=== PATIENT | male | born 1960 | race Caucasian/White ===

== ENCOUNTER 2018-09-29 20:20 | Emergency (ER) | payer BC ==
--- NOTE | 2018-09-29 21:45 | ED ---
Lower Extremity - HPI Summary HPI Summary: Pt is a 58 year old M presenting to the ED with a chief complaint of steady pain in his R calf onset 3 weeks ago without injury. Pt states there is now swelling onset tonight. Pt denies fever. Pt recently travelled to the [place] about 4 weeks ago. - History of Current Complaint Chief Complaint: EDExtremityLower Stated Complaint: RT LEG SWOLLEN AND PAIN Time Seen by Provider: 09/29/18 21:31 Hx Obtained From: Patient Mechanism Of Injury: Unknown Onset of Pain: Days - 3 weeks ago Onset/Duration: Still Present Severity Initially: Mild Severity Currently: Mild Pain Intensity: 3 Pain Scale Used: 0-10 Numeric Timing: Constant, Lasting Weeks Location: Is Discrete @ - R calf Character Of Pain: Sharp Associated Signs And Symptoms: Positive: Swelling, Redness, Other - calf pain Aggravating Factor(s): Standing, Weight Bearing Alleviating Factor(s): Rest Able to Bear Weight: Yes - Allergies/Home Medications Allergies/Adverse Reactions: Allergies Allergy/AdvReac Type Severity Reaction Status Date / Time MS Azithromycin Allergy Rash Verified 09/29/18 20:29 [Azithromycin] PMH/Surg Hx/FS Hx/Imm Hx Previously Healthy: No Endocrine/Hematology History: Reports: Hx Diabetes - DIET CONTROLLED- HX OF PRIOR TO WEIGHT LOSS Cardiovascular History: Reports: Hx Hypertension - WELL CONTROLLED Denies: Other Cardiovascular Problems/Disorders GI History: Reports: Hx Gastroesophageal Reflux Disease, Hx Hiatal Hernia Musculoskeletal History: Reports: Hx Arthritis - NECK, HANDS AND KNEES Sensory History: Reports: Hx Contacts or Glasses - GLASSES Denies: Hx Hearing Aid Opthamlomology History: Reports: Hx Contacts or Glasses - GLASSES Neurological History: Reports: 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 MENINGIOMA RESECTION 2001 [facility]. bilateral arthroscopy knees. R ankle SCOPING. Appendectomy 2007. tonsillectomy age 23 Hx Anesthesia Reactions: No Infectious Disease History: No Infectious Disease History: Reports: Traveled Outside the [place] in Last 30 Days - [facility] [place] Denies: History Other Infectious Disease - Family History Known Family History: Negative: Renal Disease - Social History Alcohol Use: Rare Alcohol Amount: 1x/month Substance Use Type: Reports: None Smoking Status (MU): Never Smoked Tobacco Review of Systems Negative: Fever Positive: Myalgia - R calf, Edema - R calf Positive: Other - redness R calf All Other Systems Reviewed And Are Negative: Yes Physical Exam - Summary Physical Exam Summary: VITAL SIGNS: Reviewed. GENERAL: Patient is a well-developed and nourished male who is lying comfortable in the stretcher. Patient is not in any acute respiratory distress. HEAD AND FACE: No signs of trauma. No ecchymosis, hematomas or skull depressions. No sinus tenderness. EYES: PERRLA, EOMI x 2, No injected conjunctiva, no nystagmus. EARS: Hearing grossly intact. Ear canals and tympanic membranes are within normal limits. MOUTH: Oropharynx within normal limits. NECK: Supple, trachea is midline, no adenopathy, no JVD, no carotid bruit, no c- spine tenderness, neck with full ROM. CHEST: Symmetric, no tenderness at palpation LUNGS: Clear to auscultation bilaterally. No wheezing or crackles. CVS: Regular rate and rhythm, S1 and S2 present, no murmurs or gallops appreciated. ABDOMEN: Soft, non-tender. No signs of distention. No rebound no guarding, and no masses palpated. Bowel sounds are normal. EXTREMITIES: R leg edema with mild tenderness and no redness. NEURO: Alert and oriented x 3. No acute neurological deficits. Speech is normal and follows commands. SKIN: Dry and warm Triage Information Reviewed: Yes Vital Signs On Initial Exam: Initial Vitals Temp Pulse Resp BP Pulse Ox 98.7 F 78 16 158/102 96 09/29/18 20:22 09/29/18 20:22 09/29/18 20:22 09/29/18 20:22 09/29/18 20:22 Vital Signs Reviewed: Yes Diagnostics - Vital Signs Vital Signs Temp Pulse Resp BP Pulse Ox 09/29/18 20:22 98.7 F 78 16 158/102 96 - Laboratory Result Diagrams: 09/29/18 22:09 09/29/18 22:09 Lab Statement: Any lab studies that have been ordered have been reviewed, and results considered in the medical decision making process. - Radiology LE Doppler Radiology Interpretation Completed By: Radiologist Summary of Radiographic Findings: No acute findings. No evidence of DVT. ED physician has reviewed this report. Lower Extremity Course/Dx - Course Course Of Treatment: Pt is a 58 y/o M presenting to the ED with a chief complaint of R calf pain onset 3 wks ago with edema onset tonight. Pt travelled to the [place] 4 wks ago. The pt's CT scan shows no DVT, the pt could have poor vascular flow and will be advised to wear compression stockings on his calf. He will be advised to follow up with his PCP in the upcoming days, and if his condition gets worse to see a vascular specialist. - Diagnoses Provider Diagnoses: Right leg swelling Discharge - Sign-Out/Discharge Documenting (check all that apply): Patient Departure - Discharge Plan Condition: Stable Disposition: HOME Referrals: Tomasa Brown MD [Primary Care Provider] - Additional Instructions: PLEASE FOLLOW UP WITH YOUR PRIMARY CARE PROVIDER WITHIN THE NEXT 1-2 DAYS. IF YOUR SYMPTOMS GET WORSE, COME BACK TO THE EMERGENCY ROOM. BE ADVISED TO WEAR COMPRESSION STOCKINGS ON YOUR RIGHT CALF IN ORDER TO INCREASE BLOOD FLOW, AND TRY TO KEEP RIGHT LEG ELEVATED AND RESTED. - Attestation Statements Document Initiated by Kalyan: Yes Documenting Scribe: Bette Rangel Provider For Whom Kalyan is Documenting (Include Credential): Viki Teixeira MD. Scribe Attestation: Bette Good, [email or web address] for Viki Teixeira MD. on 09/29/18 at [id number].
[2018-09-29 22:21] LABS: ABS Basophils 0.1 10^3/ul (0-0.2); ABS Eosinophils 0.2 10^3/ul (0-0.6); ABS Lymphocytes 1.7 10^3/ul (1.0-4.8); ABS Monocytes 0.9 10^3/ul (0-0.8); ABS Neutrophils 5.8 10^3/ul (1.5-7.7); ABS Nucleated RBC 0 10^3/ul; Eosinophil % 1.8 % (0-6); Hematocrit 45 % (42-52); Hemoglobin 15.8 g/dl (14.0-18.0); Lymphocyte % 20.2 % (25-47); Mean Corpuscular HGB Conc 35 g/dl (31-36); Mean Corpuscular Hemoglobin 29 pg (27-31); Mean Corpuscular Volume 83 fL (80-94); Mean Platelet Volume 7.9 fL (7.4-10.4); Nucleated Red Blood Cells % 0.2; Platelet Count 219 10^3/ul (150-450); Red Blood Count 5.47 10^6/ul (4.00-5.40); Red Cell Distribution Width 13 % (10.5-15); White Blood Count 8.6 10^3/ul (3.5-10.8)
[2018-09-29 22:38] LABS: EGFR Non-African American 72.3 (>60)
[2018-09-29 22:54] LABS: INR 0.95 (0.77-1.02)
[2018-09-29 23:32] VITALS: BP 161/97
== END 2018-09-29 23:35 | disposition home or self-care (01) ==
LOC: ED 20:20
DX: M79.89 Other specified soft tissue disorders (principal); M79.661 Pain in right lower leg; E11.9 Type 2 diabetes mellitus without complications; I10 Essential (primary) hypertension; Z88.1 Allergy status to other antibiotic agents
CPT/HCPCS: 36415; 80053; 83735; 85025; 85610; 85730; 99282

== ENCOUNTER 2019-04-28 20:26 | Emergency (ER) | payer BC ==
[2019-04-28 20:34] VITALS: BP 211/109
--- NOTE | 2019-04-28 20:37 | UC ---
Cardiac HPI - HPI Summary HPI Summary: 58-year-old male comes in with chief complaint of left anterior upper chest pain. He tripped and fell and landed on a piece of furniture this morning. Pain is worse with coughing taking a deep breath or palpation. Denies any other injury. No SOB at rest. Does not feel lightheaded. - History of Current Complaint Stated Complaint: S/P FALL CHEST PAIN/SOB Time Seen by Provider: 04/28/19 20:30 - Allergy/Home Medications Allergies/Adverse Reactions: Allergies Allergy/AdvReac Type Severity Reaction Status Date / Time azithromycin [From Zithromax] Allergy Intermediate Hives Verified 04/28/19 20:35 Home Medications: Home Medications Acetaminophen [Tylenol Extra Strength] 1,500 mg PO ONCE 04/28/19 [History Confirmed 04/28/19] Magnesium Aspartate HCl [Maginex] 61 mg PO BEDTIME 04/28/19 [History Confirmed 04/28/19] PMH/Surg Hx/FS Hx/Imm Hx Previously Healthy: Yes GI/ History: Gastroesophageal Reflux - Surgical History Surgical History: Yes Surgery Procedure, Year, and Place: L5-S1 fusion 30 YRS AGO. MENINGIOMA RESECTION 2001 [facility]. bilateral arthroscopy knees. R ankle SCOPING. Appendectomy 2006. tonsillectomy age 23 - Family History Known Family History: Negative: Renal Disease - Social History Alcohol Use: Rare Alcohol Amount: 1x/month Substance Use Type: None Smoking Status (MU): Never Smoked Tobacco Review of Systems All Other Systems Reviewed And Are Negative: Yes Constitutional: Positive: Negative Skin: Positive: Bruising - LT ANTERIOR CHEST Eyes: Positive: Negative ENT: Positive: Negative Respiratory: Positive: Other - SEE HPI Cardiovascular: Positive: Chest Pain Gastrointestinal: Positive: Negative Motor: Positive: Negative Neurovascular: Positive: Negative Musculoskeletal: Positive: Negative Neurological: Positive: Negative Psychological: Positive: Negative Is Patient Immunocompromised?: No Physical Exam Triage Information Reviewed: Yes Appearance: Well-Appearing, Well-Nourished, Pain Distress - MILD WITH COUGH OR LT ANT CHEST PALPATION Vital Signs Reviewed: Yes Eye Exam: Normal Eyes: Positive: Conjunctiva Clear Neck: Positive: Supple Respiratory: Positive: Lungs clear, Normal breath sounds, Other: - TENDER TO PALPATION LEFT ANTERIOR CHEST Cardiovascular: Positive: RRR Abdomen Description: Positive: Nontender, Soft Musculoskeletal Exam: Normal Musculoskeletal: Positive: Strength Intact, ROM Intact Neurological Exam: Normal Neurological: Positive: Alert, Muscle Tone Normal Psychological Exam: Normal Psychological: Positive: Age Appropriate Behavior Skin: Positive: Other - BRUISING LEFT ANT CHEST Diagnostics - EKG Cardiac Rate: NL - AT 2030 Cardiac Rhythm: Sinus: Normal - 69 BPM Ectopy: PVCs Summary of EKG Findings: INVERTED T WAVE IN III SEEN IN 07/31/13 EKG - Assessment/Plan Course Of Treatment: I discussed the x-rays with the patient. I do not see any fracture or any pneumothorax. Radiologist reading is pending. We discussed treatment of rib contusions and rib fractures and will treat him with ibuprofen and hydrocodone as needed. Discussed using an incentive spirometer which the patient reports urinary has one at home from prior knee surgery which he will use. Patient does not feel lightheaded. He does not feel short of breath at rest. We discussed that if his condition did not improve or worsened he needed to get reevaluated in the emergency department. - Clinical Impression Provider Diagnosis: Contusion of rib on left side Discharge - Sign-Out/Discharge Documenting (check all that apply): Patient Departure All imaging exams completed and their final reports reviewed: No - Discharge Plan Condition: Stable Disposition: HOME Prescriptions: HYDROcodone/ACETAMIN 5-325 MG* [[place] 5-325 TAB*] 1 tab PO Q4H PRN #30 tab MDD 6 PRN Reason: Pain Patient Education Materials: Rib Contusion (ED) Referrals: Tomasa Brown MD [Primary Care Provider] - Additional Instructions: FOLLOW UP WITH YOUR DOCTOR IF NOT COMPLETELY IMPROVED. GO TO THE EMERGENCY DEPARTMENT IF YOUR CONDITION WORSENS; PAIN, FEVER, SHORTNESS OF BREATH, YOU FEEL ILKE YOU ARE GOING TO PASS OUT OR ANY QUESTIONS OR CONCERNS. - Billing Disposition and Condition Condition: STABLE Disposition: Home
[2019-04-28] MEDS ORDERED: HYDROcodone/ACETAMIN 5-325 MG* 1 TAB PO ONE ×2 (21:17→21:22)
--- NOTE | 2019-04-29 20:03 | UC ---
- Progress Note Progress Note: Radiologist reading of the left ribs and chest x-ray from April 28, 2019 comes back as no fracture no pneumothorax. Provider interpretation the same date was the same therefore there is no discrepancy. Course/Dx - Diagnoses Provider Diagnoses: Contusion of rib on left side Discharge - Sign-Out/Discharge Documenting (check all that apply): Patient Departure All imaging exams completed and their final reports reviewed: Yes - Discharge Plan Condition: Stable Disposition: HOME Prescriptions: HYDROcodone/ACETAMIN 5-325 MG* [[place] 5-325 TAB*] 1 tab PO Q4H PRN #30 tab MDD 6 PRN Reason: Pain Patient Education Materials: Rib Contusion (ED) Referrals: Tomasa Brown MD [Primary Care Provider] - Additional Instructions: FOLLOW UP WITH YOUR DOCTOR IF NOT COMPLETELY IMPROVED. GO TO THE EMERGENCY DEPARTMENT IF YOUR CONDITION WORSENS; PAIN, FEVER, SHORTNESS OF BREATH, YOU FEEL ILKE YOU ARE GOING TO PASS OUT OR ANY QUESTIONS OR CONCERNS. - Billing Disposition and Condition Condition: STABLE Disposition: Home
== END 2019-04-28 21:32 | disposition home or self-care (01) ==
LOC: UCCORT 20:26
DX: S20.212A Contusion of left front wall of thorax, initial encounter (principal); K21.9 Gastro-esophageal reflux disease without esophagitis; W01.190A Fall on same level from slipping, tripping and stumbling with subsequent striking against furniture, initial encounter
CPT/HCPCS: 93005; 99212; G0463